=== PATIENT | female | born 1970 | race Caucasian/White ===

== ENCOUNTER 2017-04-11 14:35 | Emergency (ER) | payer MEDICARE, MEDICAID ==
[2017-04-11 15:36] VITALS: BP 118/74
--- NOTE | 2017-04-11 15:40 | UC ---
Skin Complaint HPI - HPI Summary HPI Summary: pt states she scraped her L side getting off the commode about 2 weeks ago. she notes the site is red and itchy. she denies fever, chills, pain. thyere is no drainage. pt is a diabetic but notes her BS is stable around 120. - History of Current Complaint Time Seen by Provider: 04/11/17 15:26 Stated Complaint: SKIN COMPLAINT Hx Obtained From: Patient Hx Last Menstrual Period: ~2012 ?: No Onset/Duration: Gradual Onset Timing: Constant Location: Other - L side or abdomen. Character: Pruritus, Redness Aggravating Factor(s): Nothing Alleviating Factor(s): Nothing Associated Signs & Symptoms: Negative: Nausea, Vomiting, Fever, Chills Related History: Diabetes - Allergy/Home Medications Allergies/Adverse Reactions: Allergies Allergy/AdvReac Type Severity Reaction Status Date / Time Sulfa (Sulfonamide Allergy Intermediate Hives Verified 04/11/17 15:30 Antibiotics) Review of Systems Constitutional: Negative Skin: Rash Eyes: Negative ENT: Negative Respiratory: Negative Cardiovascular: Negative Gastrointestinal: Negative Genitourinary: Negative Motor: Negative Neurovascular: Negative Musculoskeletal: Negative Neurological: Negative Psychological: Negative All Other Systems Reviewed And Are Negative: Yes PMH/Surg Hx/FS Hx/Imm Hx - Additional Past Medical History Additional PMH: Plus per triage note as well. Previously Healthy: No Endocrine History: Diabetes, Thyroid Disease Cardiovascular History: Cardiac Disease Respiratory History: COPD - Surgical History Surgical History: Yes Surgery Procedure, Year, and Place: stent placement with hole repaired. - Family History Known Family History: Positive: Cardiac Disease, Hypertension, Diabetes - Social History Lives: With Family Alcohol Use: None Substance Use Type: None Smoking Status (MU): Heavy Every Day Tobacco Smoker Type: Cigarettes Amount Used/How Often: 1/2 PPD Length of Time of Smoking/Using Tobacco: 30 Years Have You Smoked in the Last Year: Yes - Immunization History Most Recent Influenza Vaccination: Not the 2015/2016 Season Vaccination Up to Date: Yes Physical Exam Triage Information Reviewed: Yes Appearance: Well-Appearing Vital Signs Reviewed: Yes Eyes: Positive: Conjunctiva Clear ENT: Positive: Normal ENT inspection Neck: Positive: Supple, Nontender, No Lymphadenopathy Respiratory: Positive: Lungs clear, Normal breath sounds, No respiratory distress Cardiovascular: Positive: RRR, No Murmur, Pulses Normal Abdomen Description: Positive: Nontender, No Organomegaly, Soft, Other: - panus lifted-medicated powder noted. Bowel Sounds: Positive: Present Musculoskeletal: Positive: ROM Intact Neurological: Positive: Alert Psychological: Positive: Age Appropriate Behavior Skin Exam: Other - Abrasions L side of abdomen that are dry, secondary excoriation noted. Mild surrounding eryhtema but non tender, not fluctuant and not draining. Nop inguinal adenopathy. Course/Dx - Course Course Of Treatment: pt not febrile or toxic. nothing to suggest abscess. bs stable. pt has hx mrsa but is bactrim allergic thus will cover with keflex po and bactroban topical. need for close f/u pcp stressed to pt and go to ER if worsening. - Diagnoses Provider Diagnoses: Abrasion L side of abdomen with superficial skin infection. Discharge - Discharge Plan Condition: Stable Disposition: HOME Prescriptions: Cephalexin CAP* [Keflex CAP*] 500 mg PO TID 10 Days #30 cap Mupirocin 2% OINT* [Bactroban 2 % Oint*] 1 applic TOPICAL BID #1 tube Patient Education Materials: Wound Infection (ED) Referrals: Dionne Le MD [Primary Care Provider] - 3 Days
== END 2017-04-11 16:02 | disposition home or self-care (01) ==
LOC: UCCORT 14:35
DX: S30.811A Abrasion of abdominal wall, initial encounter (principal); L08.9 Local infection of the skin and subcutaneous tissue, unspecified; W22.8XXA Striking against or struck by other objects, initial encounter; Y93.89 Activity, other specified; Y92.002 Bathroom of unspecified non-institutional (private) residence as the place of occurrence of the external cause; F17.210 Nicotine dependence, cigarettes, uncomplicated; E11.9 Type 2 diabetes mellitus without complications
CPT/HCPCS: 99212; G0463